=== PATIENT | male | born 1975 | race Caucasian/White ===

== ENCOUNTER 2025-06-15 08:37 | Emergency (ER) | payer BC ==
[2025-06-15] MEDS ORDERED: Sodium Chloride 0.9% 10 ML Syringe FLUSH PRN (08:55)
[2025-06-15] MEDS ORDERED: Sodium Chloride 0.9% 2.5 ML Syringe FLUSH PRN (08:55)
[2025-06-15 09:20] LABS: BASOPHILS ABSOLUTE AUTO 0.05 K/uL (0.00-0.20); BASOPHILS PERCENT AUTO 0.5 % (0.0-1.0); EOSINOPHILS ABSOLUTE AUTO 0.34 K/uL (0.00-0.45); EOSINOPHILS PERCENT AUTO 3.1 % (0.0-6.0); IMMATURE GRAN ABSOLUTE AUTO 0.04 K/uL (0.00-0.05); IMMATURE GRAN PERCENT AUTO 0.4 % (0.0-0.4); LYMPHOCYTES ABSOLUTE AUTO 1.98 K/uL (1.00-4.80); LYMPHOCYTES PERCENT AUTO 18.0 % (24.0-44.0); MEAN PLATELET VOLUME 10.2 fL (9.4-12.4); MONOCYTES ABSOLUTE AUTO 0.84 K/uL (0.00-0.80); MONOCYTES PERCENT AUTO 7.7 % (0.0-8.0); NEUTROPHILS ABSOLUTE AUTO 7.73 K/uL (1.80-7.70); NEUTROPHILS PERCENT AUTO 70.3 % (41.0-71.0); NRBC ABSOLUTE 0.00 K/uL (0.00-0.02); NRBC PERCENT 0.0 /100WBC (0.0-0.2); PLATELET COUNT,PLT 185 K/uL (150-400); RED BLOOD CELL COUNT 4.54 M/uL (4.52-5.90); WHITE BLOOD CELL COUNT,WBC 10.98 K/uL (3.9-11.3)
[2025-06-15 09:53] LABS: A/G RATIO 1.1 (0.9-1.6); ALANINE AMINOTRANSFERASE,ALT 20.0 IU/L (14-63); ASPARTATE AMNIOTRANSFERASE,AST 16.0 IU/L (15-37); BILIRUBIN TOTAL 0.5 mg/dL (0.2-1.0); BLOOD UREA NITROGEN,BUN 22.0 mg/dL (7.0-18.0); CARBON DIOXIDE,CO2 24.1 mmol/L (21.0-32.0); CHLORIDE,CL 96.0 mmol/L (98-107); CHOLESTEROL HDL 26.0 mg/dL (40-60); CHOLESTEROL LDL CALCULATED 69.0 mg/dL (60-180); CHOLESTEROL TOTAL 132.0 mg/dL (50-200); CREATININE 1.3 mg/dL (0.8-1.3); EST CRCL DRUG DOSING (CG) 62.85 mL/min; GLUCOSE RANDOM 131.0 mg/dL (74-106); POTASSIUM,K 3.8 mmol/L (3.5-5.1); PRO B-TYPE NATRIUR PEPT,BNPPRO 14.0 pg/mL (0-125); PROTEIN TOTAL,TP 7.1 g/dL (6.4-8.2); SODIUM,NA 124.0 mmol/L (136-148); VLDL CHOLESTEROL 37.0 mg/dL (5-55)
[2025-06-15 10:01] LABS: ESTIMATED GFR 67.0 mL/min (>60)
[2025-06-15] MEDS: Iopamidol 755 MG/ML 500 ML Multipack Bottle IVPUSH STA (10:25)
== END 2025-06-15 11:51 | disposition home or self-care (01) ==
LOC: MW.ED 08:37
DX: E11.65 Type 2 diabetes mellitus with hyperglycemia (principal); E87.1 Hypo-osmolality and hyponatremia; H55.09 Other forms of nystagmus; E78.00 Pure hypercholesterolemia, unspecified; I10 Essential (primary) hypertension; Z79.899 Other long term (current) drug therapy
CPT/HCPCS: 36415; 70450; 70496; 70498; 80053; 80061; 82947; 83036; 83735; 83880; 84295; 84484; 85025; 93005; 96360; 99284; A9270; J7030; Q9967; 93010; 99283

== ENCOUNTER 2025-07-08 07:40 | Emergency (ER) | payer BC | END 2025-07-08 09:09 | disposition home or self-care (01) | LOC: MW.ED 07:40 | DX: E11.649 Type 2 diabetes mellitus with hypoglycemia without coma (principal); I10 Essential (primary) hypertension; E78.00 Pure hypercholesterolemia, unspecified; Z79.84 Long term (current) use of oral hypoglycemic drugs; Z79.899 Other long term (current) drug therapy | CPT/HCPCS: 82947; 99283; 99284 ==